=== PATIENT | female | born 1985 | race Caucasian/White ===

== ENCOUNTER 2016-09-13 12:28 | Inpatient (IN) | payer MEDICAID ==
[~2016-09-13] VITALS: Ht 154.9 cm; Wt 78.7 kg
[~2016-09-13 12:28] MED LIST: KEFLEX250 MG PO; NORCO 5/325 MG1 TAB PO; VICODIN-ES1 TAB PO
[2016-09-13 12:37] VITALS: BP 141/71
--- NOTE | 2016-09-13 12:56 | NUR ---
PATIENT PRESENTS TO ED DUE T0 LOWER ABDOMINAL AND RECTAL PAIN . PT STATES I HAVE NO HEMORRHOIDS ,2X VOMITTING, NO DIARRHEA, SKIN IS PINK/WARM/DRY; AAOX4 WITH EVEN AND STEADY GAIT; LUNGS CLEAR BL; HR EVEN AND REGULAR; PT DENIES ANY FEVER, CP, SOB, OR COUGH AT THIS TIME; PATIENT STATES PAIN OF 9/10 AT THIS TIME; PATIENT POSITIONED FOR COMFORT; HOB ELEVATED; BEDRAILS UP X2; BED DOWN. DR. CRAIN AT BEDSIDE.
[2016-09-13] MEDS ORDERED: ACETAMIN/CODEINE 120/12MG-5ML 5 ML UDC PO ONE (13:05)
[2016-09-13] MEDS ORDERED: KETOROLAC 60 MG/2 ML VIAL IM ONE (13:05)
--- NOTE | 2016-09-13 13:15 | NUR ---
LAB AT BEDSIDE
--- NOTE | 2016-09-13 13:20 | NUR ---
XRAY AT BEDSIDE
--- NOTE | 2016-09-13 13:36 | NUR ---
PT RESTING AT THIS TIME, PT AAO, PAIN LEVEL 10/11
--- NOTE | 2016-09-13 13:39 | NUR ---
PT FOR CT VIA WHEELCHAIR, PT AAO
--- NOTE | 2016-09-13 15:01 | NUR ---
PT WENT FOR US VIA WHEELCHAIR, PT DANYO.
--- NOTE | 2016-09-13 15:29 | NUR ---
PT BACK IN BED FROM US, PT AAO, AT BEDSIDE
[2016-09-13] MEDS ORDERED: fentaNYL 0.05 MG/ML VIAL IM ONE (15:40)
--- NOTE | 2016-09-13 15:45 | NUR ---
DR. CRAIN AT BEDSIDE
[2016-09-13] MEDS ORDERED: NACL 0.9% 1,000 ML IV ONE (16:10)
--- NOTE | 2016-09-13 16:28 | NUR ---
PT LYING ON BED ON RIGHT SIDE POSITION, STILL WITH PAIN, 11/11, IVF ONGOING, AT BEDSIDE, US AT BEDSIDE
[2016-09-13] MEDS ORDERED: fentaNYL 0.05 MG/ML VIAL IVP ONE (16:40)
--- NOTE | 2016-09-13 16:59 | NUR ---
PT IN BED NO PAIN NOTED AT THIS TIME, IVF ONGOING WELL TOLERATED, AT BEDSIDE
--- NOTE | 2016-09-13 17:37 | NUR ---
CALL PLACE TO TELE SPOKE TO BOY, BOY WILL CALL ME BACK FOR REPORT
--- NOTE | 2016-09-13 17:47 | NUR ---
REPORT GIVEN TO RICKI
--- NOTE | 2016-09-13 17:54 | NUR ---
TRANSFER TO TELE VIA [place], PT AAO, AT BEDSIDE.
--- NOTE | 2016-09-13 18:00 | NUR ---
ADMITTED 31 YEAR OLD FEMALE FROM ER VIA [facility] WITH A DIAGNOSIS OF INTRACTABLE ABD PAIN ACCOMPANIED BY , PT AMBULATED FROM GURNEY TO BED, PT COMPLAIN OF PAIN WHEN MOVING BUT ABLE TO TOLERATE AT THIS TIME. NO S/S OF RESPIRATORY DISTRESS NOTED, MRSA COLLECTED, VITALS STABLE T 97.6 P 58 R20 BP 98/77 O2 SAT 99% ON ROOM AIR. ORIENTED PT IN THE ROOM AND USE OF CALL LIGHT, SAFETY/FALL PRECAUTION ENFORCED, CALL LIGHT WITHIN REACH, WILL CONTINUE TO MONITOR.
--- NOTE | 2016-09-13 19:15 | NUR ---
ENDORSED PT TO SHARLA LIND FOR CONTINUITY OF CARE AND ADMISSION. PT IS STABLE AT THIS TIME.
--- NOTE | 2016-09-13 19:20 | NUR ---
PT IS CURRENTLY AWAKE ALERT ORIENTED,PT IS ABLE TO MAKE NEEDS KNOWN AND PT IS AMBULATORY.PT ORIENTED TO ROOM AND CALL LIGHT,AND VISITING HOURS PT VERBALIZES UNDERSTANDING.PLAN OF CARE DISCUSSED WITH THE PATIENT AND PT VERBALIZES UNDERSTANDING.PT SKIN INTACT,PT DENIES ABD PAIN AT THIS TIME AND DENIES ANY NAUSEA AND VOMITING.
[2016-09-13] MEDS ORDERED: ONDANSETRON 4 MG/2 ML VIAL IVP PRN (19:40)
[2016-09-13] MEDS ORDERED: DOCUSATE SODIUM 100 MG GELCAP PO PRN (19:40)
[2016-09-13] MEDS ORDERED: MORPHINE SULFATE 2 MG/ML SYR IVP PRN (19:40)
[2016-09-13] MEDS ORDERED: ACETAMINOPHEN 325 MG SUPP RC PRN (19:40)
[2016-09-13] MEDS ORDERED: IBUPROFEN 800 MG TAB PO PRN ×2 (19:40→22:55)
[2016-09-13 20:00] VITALS: BP 103/59
--- NOTE | 2016-09-13 20:00 | NUR ---
Patient's Plan of Care was discussed and reviewed with CLERK ANALYST: LELO MONCADA
--- NOTE | 2016-09-13 22:15 | NUR ---
PT RESTING IN BED QUIETLY NEEDS MET WILL CONTINUE TO MONITOR NEEDS MET.PT WAS GIVEN A SANDWICH AND A JELLO. CALL LIGHT WITHIN REACH WILL CONTINUE TO MONITOR.
[2016-09-13] MEDS ORDERED: ACETAMINOPHEN 325 MG TAB PO PRN (22:55)
[2016-09-14] VITALS: BP 93/49
--- NOTE | 2016-09-14 00:10 | NUR ---
PT IS CURRENTLY RESTING IN BED DENIES PAIN NO N/V NOTED PT IS AWARE THAT SHE IS NPO AFTER MIDNIGHT AND PATIENT VERBALIZES UNDERSTANDING.CALL LIGHT WITHIN REACH
[2016-09-14] MEDS: NACL 0.9% 1,000 ML IV SCH ×4 (00:55→17:44)
--- NOTE | 2016-09-14 03:45 | NUR ---
MD LYNN CALLED AND HE WAS INFORMED THAT PT DOESNT HAVE AN ORDER FOR CODE STATUS.MD ANNE.
[2016-09-14 04:00] VITALS: BP 90/50
--- NOTE | 2016-09-14 04:15 | NUR ---
PT STABLE RESTING IN BED I ASKED HER IF SHE HAS PAIN OR DISCOMFORT PT DENIES PAIN AND DISCOMFORT PT DENIES N/V.IVF INFUSING WELL.
--- NOTE | 2016-09-14 06:50 | NUR ---
PT STABLE DENIES PAIN AND DISCOMFORT IVF INFUSING WELL WILL CONTINUE TO MONITOR CALL LIGHT WITHIN REACH.
--- NOTE | 2016-09-14 07:26 | NUR ---
ASSUMED CONTINUITY OF CARE. NO SIGNS AND SYMPTOMS OF ACUTE DISTRESS NOTED. INITIAL ASSESSMENT DONE. EXPLAINED DIAGNOSIS, PLAN OF CARE, PAIN MANAGEMENT TEACHING, USE OF CALL LIGHT/BED/TV/BATHROOM. VERBALIZED UNDERSTANDING. CALL LIGHT WITHIN REACH.
--- NOTE | 2016-09-14 07:29 | NUR ---
PT STABLE REPORT ENDORSED AT BEDSIDE TO SHARLA ALVARES PT STABLE.
--- NOTE | 2016-09-14 07:41 | NUR ---
PATIENT HAS BEEN SCREENED AND CATEGORIZED MODERATE NUTRITION RISK. PATIENT WILL BE SEEN WITHIN 3-5 DAYS OF ADMISSION. 09/16/16-09/18/16 ROSENDO BARDALES MS, RDN
[2016-09-14 08:00] VITALS: BP 110/66
[2016-09-14] MEDS: PANTOPRAZOLE 40 MG TABEC PO SCH (09:00)
[2016-09-14 12:00] VITALS: BP 120/69
--- NOTE | 2016-09-14 12:00 | NUR ---
VITALS SIGNS STABLE. NO C/O PAIN. WILL MONITOR.
[2016-09-14] MEDS ORDERED: MECLIZINE 25 MG TAB PO PRN (12:30)
--- NOTE | 2016-09-14 15:18 | NUR ---
SEEN WATCHING TV AT THIS TIME. NO DISCOMFORT NOTICED. CALL LIGHT WITHIN REACH.
[2016-09-14 16:00] VITALS: BP 97/50
--- NOTE | 2016-09-14 19:04 | NUR ---
BEDSIDE REPORT GIVEN TO AMAURI MERLOS -ARJUN. IVF INFUSING WELL. IN STABLE CONDITION.
--- NOTE | 2016-09-14 19:05 | NUR ---
RECEIVED PT AWAKE TALKING TO VISITORS AT BEDSIDE, NO SIGNS OF PAIN OR N/V, IVF INFUSING WELL, POC DISCUSSED, CALL LIGHT WITHIN REACH.
--- NOTE | 2016-09-14 21:40 | NUR ---
ROUNDED ON PT, PT TALKING TO FAMILY MEMBER AT BEDSIDE, NO SIGNS OF PAIN OR N/V, ALL NEEDS ATTENDED.
--- NOTE | 2016-09-14 23:30 | NUR ---
PT SLEEPING, EASILY AROUSABLE, VITAL SIGNS STABLE, DENIES ANY PAIN, IVF INFUSING WELL, CONTINUE TO MONITOR CLOSELY.
[2016-09-15] VITALS: BP 93/57
[2016-09-15] MEDS: NACL 0.9% 1,000 ML IV SCH ×2 (01:47→11:37)
--- NOTE | 2016-09-15 02:00 | NUR ---
NEW IVF BAG STARTED, PT IN NO DISTRESS, MONITORED CLOSELY.
--- NOTE | 2016-09-15 04:30 | NUR ---
PT SEEN SLEEPING, NO SIGNS OF PAIN, MONITORED CLOSELY.
--- NOTE | 2016-09-15 07:10 | NUR ---
ASSUMED CONTINUITY OF CARE. NO SIGNS AND SYMPTOMS OF ACUTE DISTRESS NOTICED. KEEP COMFORTABLE ON BED. ENCOURAGED AMBULATION IF TOLERABLE. EXPLAINED DIAGNOSIS, PLAN OF CARE, PAIN MANAGEMENT TEACHING, USE OF CALL LIGHT/BED/TV/BATHROOM. VERBALIZED UNDERSTANDING. CALL LIGHT WITHIN REACH.
--- NOTE | 2016-09-15 07:10 | NUR ---
PT AWAKE, NO SIGNS OF PAIN, REPORT GIVEN TO DAVID MAGDALENO FOR CONTINUITY OF CARE.
[2016-09-15 08:00] VITALS: BP 115/48
[2016-09-15] MEDS: PANTOPRAZOLE 40 MG TABEC PO SCH (08:35)
[2016-09-15] MEDS ORDERED: MOTRIN600 MG PO (09:21)
[2016-09-15] MEDS ORDERED: MAGNESIUM OXIDE 400 MG TAB PO SCH (10:00)
--- NOTE | 2016-09-15 10:00 | NUR ---
EXPLAINED ABOUT DIAGNOSIS, MD D/C ORDER, DISEASE MANAGEMENT, D/C INSTRUCTIONS AND TEACHING, MD FOLLOW-UP, MD D/C PRESCRIPTION LIST EDUCATION, PAIN MANAGEMENT TEACHING. VERBALIZED UNDERSTANDING.
[2016-09-15 11:45] VITALS: BP 106/68
--- NOTE | 2016-09-15 12:05 | NUR ---
D/C HOME VIA WHEELCHAIR ACCOMPANIED BY PT. . AWAKE, ALERT, AND ORIENTED X4. SPEECH CLEAR. NO C/O PAIN. NO SOB, NOTED. IN STABLE CONDITION. INFORMED CHARGE NURSE KELLY THAYER.
== END 2016-09-15 12:05 | disposition home or self-care (01) | DRG 532 ==
LOC: MED 12:42 → MTU 16:58
PROVIDERS: ADMIT Family Medicine; ATTEND Family Medicine
DX: N83.202 Unspecified ovarian cyst, left side (principal); N17.0 Acute kidney failure with tubular necrosis; E43 Unspecified severe protein-calorie malnutrition; R10.2 Pelvic and perineal pain; Z90.49 Acquired absence of other specified parts of digestive tract; Z68.32 Body mass index [BMI] 32.0-32.9, adult

== ENCOUNTER 2017-04-20 23:55 | Emergency (ER) | payer MEDICAID ==
[~2017-04-20] VITALS: Ht 154.9 cm; Wt 81.7 kg
[~2017-04-20 23:55] MED LIST changes: +IBUP-2213 PO; -KEFLEX250 MG PO; -NORCO 5/325 MG1 TAB PO; -VICODIN-ES1 TAB PO
[2017-04-21 00:03] VITALS: BP 134/70
--- NOTE | 2017-04-21 00:53 | NUR ---
AMBULATED TO ER BED 8
--- NOTE | 2017-04-21 00:55 | NUR ---
PATIENT PRESENTS TO ED WITH C/O ABD AND BACK PAIN . PT DENIES N/V/D; SKIN IS PINK/WARM/DRY; AAOX4 WITH EVEN AND STEADY GAIT; LUNGS CLEAR BL; HR EVEN AND REGULAR; PT DENIES ANY FEVER, CP, SOB, OR COUGH AT THIS TIME; PATIENT STATES PAIN OF 8/10 AT THIS TIME; VSS; PATIENT POSITIONED FOR COMFORT; HOB ELEVATED; BEDRAILS UP X2; BED DOWN. ER MD MADE AWARE OF PT STATUS.
[2017-04-21] MEDS ORDERED: ONDANSETRON 4 MG ODT PO ONE (01:05)
[2017-04-21] MEDS ORDERED: KETOROLAC 30 MG/ML VIAL IM ONE (01:05)
[2017-04-21 01:23] LABS: HEMATOCRIT 38.7 % (36-48); HEMOGLOBIN 12.8 g/dL (12.0-16.0); MEAN CORPUSCULAR HEMOGLOBIN 29 pg (27-31); MEAN CORPUSCULAR HGB CONC 33 g/dL (33-37); MEAN CORPUSCULAR VOLUME 87 fL (80-94); PLATELET COUNT (AUTO) 254 K/uL (140-450); RED BLOOD CELL COUNT(AUTO) 4.45 MIL/uL (4.20-5.40); RED CELL DISTRIBUTION WIDTH 12.7 % (11.6-13.7)
[2017-04-21 01:34] LABS: ANION GAP 12.1 (8-16); CARBON DIOXIDE 26.6 mmol/L (21-32); CREATININE 0.7 mg/dL (0.6-1.3); POTASSIUM 3.7 mmol/L (3.5-5.1)
[2017-04-21 01:41] LABS: APPEARANCE,URINE CLOUDY (CLEAR); BILIRUBIN,URINE NEGATIVE (NEGATIVE); BLOOD, URINE 2+ (NEGATIVE); COLOR,URINE YELLOW (YELLOW); LEUKOCYTE ESTERASE ,URINE NEGATIVE (NEGATIVE); NITRITE, URINE POSITIVE (NEGATIVE); UGLUCOSE NEGATIVE (NEGATIVE)
[2017-04-21 01:48] LABS: EOSINOPHILS % (MANUAL) 1 % (0-4); LYMPHOCYTES % (MANUAL) 42 % (20-46); MONOCYTES % (MANUAL) 6 % (5-12)
[2017-04-21 02:12] LABS: RBC,URINE 3-10 (FEW) /HPF (0-5); WBC,URINE 0-5 (RARE) /HPF (0-5)
[2017-04-21 02:25] VITALS: BP 130/72
--- NOTE | 2017-04-21 02:25 | NUR ---
Patient discharged with v/s stable. Written and verbal after care instructions given and explained. Patient alert, oriented and verbalized understanding of instructions. Ambulatory with steady gait. All questions addressed prior to discharge. ID band removed. Patient advised to follow up with PMD. Rx of CIPROFLOXACIN 250MG given. Patient educated on indication of medication including possible reaction and side effects. Opportunity to ask questions provided and answered.
== END 2017-04-21 02:25 | disposition home or self-care (01) ==
LOC: MED 23:55
DX: N39.0 Urinary tract infection, site not specified (principal); I10 Essential (primary) hypertension
CPT/HCPCS: 36415; 80048; 81001; 81025; 83690; 85025; 87086; 96372; 99284; J1885; S0119; 81002; 99283

== ENCOUNTER 2018-04-20 18:27 | Emergency (ER) | payer SELFPAY ==
[~2018-04-20] VITALS: Ht 157.5 cm; Wt 72.6 kg
[2018-04-20 18:33] VITALS: BP 133/83
[2018-04-20] MEDS ORDERED: IBUPROFEN 400 MG TAB PO ONE (18:35)
--- NOTE | 2018-04-20 18:39 | NUR ---
Patient ambulated to bed 7. RN evaluating patient at bedside.
--- NOTE | 2018-04-20 18:45 | NUR ---
C/O RT FLANK PAIN AND FEVER TWO DAYS AGO, THE PAIN COMES AND GOES. RADIATE TO THE WHOLE BODY. SKIN IS PINK/WARM/DRY; AAOX4 WITH EVEN AND STEADY GAIT; LUNGS CLEAR BL; HR EVEN AND REGULAR; PT DENIES ANY FEVER, CP, SOB, OR COUGH AT THIS TIME; PATIENT STATES PAIN OF 7/10 AT THIS TIME; VSS; PATIENT POSITIONED FOR COMFORT; HOB ELEVATED; BEDRAILS UP X2; BED DOWN. ER MD MADE AWARE OF PT STATUS.
--- NOTE | 2018-04-20 19:06 | NUR ---
PT STATED CHEST PAIN RELIEVED. FAMILY AT BEDSIDE. Addendum: 04/20/18 at 1907 by LENARD WRONG ENTRY.
--- NOTE | 2018-04-20 19:15 | NUR ---
REPORT GIVEN TO MIRELA DÍAZ.
[2018-04-20] MEDS ORDERED: LEVOFLOXACIN 500 MG/D5W PREMIX 100 ML IV ONE (19:20)
[2018-04-20] MEDS ORDERED: NACL 0.9% 1,000 ML IV ONE (19:20)
[2018-04-20 19:45] LABS: BASOPHILS % (AUTO) 0.1 % (0.0-2.0); EOSINOPHILS % (AUTO) 0.1 % (0.0-4.0); HEMATOCRIT 38.6 % (36-48); LYMPHOCYTES # (AUTO) 0.8 K/uL (2.5-16.5); MEAN CORPUSCULAR HEMOGLOBIN 30 pg (27-31); MEAN CORPUSCULAR HGB CONC 34 g/dL (33-37); MEAN CORPUSCULAR VOLUME 88.4 fL (80-94); MONOCYTES # (AUTO) 0.4 K/uL (0.8-1.0); NEUTROPHILS # (AUTO) 9.9 K/uL (1.8-7.7); NEUTROPHILS % (AUTO) 88.8 % (42.2-75.2); PLATELET COUNT (AUTO) 232 K/uL (140-450); RED BLOOD CELL COUNT(AUTO) 4.37 MIL/uL (4.20-5.40); WHITE BLOOD COUNT (AUTO) 11.2 K/uL (4.8-10.8)
[2018-04-20 19:51] LABS: BILIRUBIN,URINE NEGATIVE (NEGATIVE); BLOOD, URINE 2+ (NEGATIVE); COLOR,URINE YELLOW (YELLOW); LEUKOCYTE ESTERASE ,URINE NEGATIVE (NEGATIVE); NITRITE, URINE NEGATIVE (NEGATIVE); PH,URINE 5.5 (5.0-9.0); UGLUCOSE NEGATIVE (NEGATIVE)
[2018-04-20 19:52] LABS: APPEARANCE,URINE HAZY (CLEAR)
[2018-04-20 19:56] LABS: ANION GAP 15.7 (8-16); CREATININE 0.9 mg/dL (0.6-1.3); POTASSIUM 3.7 mmol/L (3.5-5.1)
[2018-04-20 20:02] LABS: ALBUMIN 3.5 g/dL (3.4-5.0); TOTAL BILIRUBIN 0.8 mg/dL (0.0-1.0)
[2018-04-20 20:25] LABS: RBC,URINE 3-10 (FEW) /HPF (0-5); WBC,URINE 0-5 (RARE) /HPF (0-5)
--- NOTE | 2018-04-20 21:00 | NUR ---
PT LAYING IN BED, VSS.
[2018-04-20 22:51] VITALS: BP 111/75
--- NOTE | 2018-04-20 22:54 | NUR ---
Patient discharged with v/s stable. Written and verbal after care instructions given and explained. Patient alert, oriented and verbalized understanding of instructions. Ambulatory with steady gait. All questions addressed prior to discharge. ID band removed. Patient advised to follow up with PMD. Rx of CIPROFLOXACIN 500MG given. Patient educated on indication of medication including possible reaction and side effects. Opportunity to ask questions provided and answered.
== END 2018-04-20 22:54 | disposition home or self-care (01) ==
LOC: MED 18:27
DX: A09 Infectious gastroenteritis and colitis, unspecified (principal); N39.0 Urinary tract infection, site not specified; I10 Essential (primary) hypertension; E03.9 Hypothyroidism, unspecified
CPT/HCPCS: 36415; 80053; 81001; 81025; 85025; 96365; 96366; 99285; J1956

== ENCOUNTER 2019-01-13 19:06 | Emergency (ER) | payer SELFPAY ==
[~2019-01-13] VITALS: Ht 157.5 cm; Wt 74.8 kg
--- NOTE | 2019-01-13 19:22 | NUR ---
PT AMBULATED TO BED 2 FOR TRIAGE.
[2019-01-13 19:24] VITALS: BP 119/65
--- NOTE | 2019-01-13 19:24 | NUR ---
33 YO F BIB SELF PRESENTS TO ED C/O DIARRHEA X 2 DAYS ACCOMPANIED BY BILATERAL LOWER ABD CRAMPING. PT ALSO REPORTS DIZZINESS X 1 WEEK WITH A 10/10 POUNDING COX X 3 DAYS. SHE ALSO REPORTS THAT SHE BEGAN TO FEEL NAUSEOUS TODAY AND HAD VOMITED X1 BEFORE ARRIVING TO ED. -- PT APPEARS UNCOMFORTABLE. ALERT, ORIENTED, COOPERARTIVE, RESPONDS TO QUESTIONS APPROPRIATELY. BEHAVIOR AGE APPROPRIATE. -- SKIN PINK, WARM, DRY. BREATHING EVEN, UNLABORED. VSS. PMH-- GALLBLADDER SX, 2016. HX OF FREQUENT RIGHT KIDNEY INFECTION. RX-- ADVIL @1300
[2019-01-13] MEDS ORDERED: NACL 0.9% 1,000 ML IV ONE (20:00)
[2019-01-13] MEDS ORDERED: ONDANSETRON 4 MG/2 ML VIAL IVP ONE (20:00)
[2019-01-13] MEDS ORDERED: KETOROLAC 30 MG/ML VIAL IVP ONE (20:00)
--- NOTE | 2019-01-13 20:12 | NUR ---
LAB AT BEDSIDE.
[2019-01-13 20:19] LABS: BASOPHILS % (AUTO) 0.4 % (0.0-2.0); EOSINOPHILS % (AUTO) 0.8 % (0.0-4.0); HEMATOCRIT 37.9 % (36-48); HEMOGLOBIN 12.6 g/dL (12.0-16.0); LYMPHOCYTES % (AUTO) 32.5 % (20.5-51.1); MEAN CORPUSCULAR HEMOGLOBIN 29 pg (27-31); MEAN CORPUSCULAR HGB CONC 33 g/dL (33-37); MEAN CORPUSCULAR VOLUME 86.3 fL (80-94); MONOCYTES # (AUTO) 0.4 K/uL (0.8-1.0); MONOCYTES % (AUTO) 6.7 % (1.7-9.3); NEUTROPHILS # (AUTO) 3.6 K/uL (1.8-7.7); NEUTROPHILS % (AUTO) 59.6 % (42.2-75.2); PLATELET COUNT (AUTO) 263 K/uL (140-450); RED BLOOD CELL COUNT(AUTO) 4.39 MIL/uL (4.20-5.40); RED CELL DISTRIBUTION WIDTH 13.9 % (11.6-13.7)
[2019-01-13 20:34] LABS: ALBUMIN 3.5 g/dL (3.4-5.0); ANION GAP 15.1 (8-16); CARBON DIOXIDE 24.4 mmol/L (21-32); CREATININE 0.8 mg/dL (0.6-1.3); POTASSIUM 3.5 mmol/L (3.5-5.1); TOTAL BILIRUBIN 0.4 mg/dL (0.0-1.0)
--- NOTE | 2019-01-13 21:40 | NUR ---
Patient appears to be resting comfortably in bed. Vital Signs within normal limits. Respirations even and unlabored. Waiting for IV fluids to complete running. Pain decreased to 6/10. Pt denies nausea. Medications effective.
[2019-01-13 21:51] VITALS: BP 106/41
--- NOTE | 2019-01-13 21:51 | NUR ---
Patient discharged with v/s stable. Written and verbal after care instructions given and explained. Patient alert, oriented and verbalized understanding of instructions. Ambulatory with steady gait. All questions addressed prior to discharge. ID band removed. Patient advised to follow up with PMD. Rx of Zofran and Motrin given. Patient educated on indication of medication including possible reaction and side effects. Opportunity to ask questions provided and answered.
== END 2019-01-13 21:51 | disposition home or self-care (01) ==
LOC: MED 19:06
DX: A08.4 Viral intestinal infection, unspecified (principal); R51 Headache; I10 Essential (primary) hypertension; Z90.49 Acquired absence of other specified parts of digestive tract; Z79.1 Long term (current) use of non-steroidal anti-inflammatories (NSAID)
CPT/HCPCS: 36415; 74022; 80053; 81002; 81025; 83690; 85025; 96361; 96374; 96375; 99285; J1885; J2405; J7030

== ENCOUNTER 2019-06-23 22:41 | Inpatient (IN) | payer MEDICAID ==
[~2019-06-23] VITALS: Ht 157.5 cm; Wt 74.8 kg
[2019-06-23 22:50] VITALS: BP 123/65
--- NOTE | 2019-06-23 22:53 | NUR ---
TO LOBBY A/W BED AMBULATORY
--- NOTE | 2019-06-24 00:18 | NUR ---
PT AMBULATED TO BED 4
[2019-06-24 00:37] LABS: BASOPHILS % (AUTO) 0.1 % (0.0-2.0); EOSINOPHILS % (AUTO) 0.5 % (0.0-4.0); HEMATOCRIT 41.6 % (36-48); HEMOGLOBIN 13.8 g/dL (12.0-16.0); MEAN CORPUSCULAR HEMOGLOBIN 30 pg (27-31); MEAN CORPUSCULAR HGB CONC 33 g/dL (33-37); MEAN CORPUSCULAR VOLUME 89.8 fL (80-94); MONOCYTES # (AUTO) 0.5 K/uL (0.8-1.0); MONOCYTES % (AUTO) 5.9 % (1.7-9.3); NEUTROPHILS # (AUTO) 7.1 K/uL (1.8-7.7); NEUTROPHILS % (AUTO) 81.5 % (42.2-75.2); PLATELET COUNT (AUTO) 244 K/uL (140-450); RED BLOOD CELL COUNT(AUTO) 4.63 MIL/uL (4.20-5.40); RED CELL DISTRIBUTION WIDTH 14.1 % (11.6-13.7); WHITE BLOOD COUNT (AUTO) 8.7 K/uL (4.8-10.8)
--- NOTE | 2019-06-24 00:39 | NUR ---
33 Y/O FEMALE WITH C/O N/V/D, ABD AND FLANK CRAMPING, AND HEADAHCE X2 DAYS. ABD SOFT ROUND AND TENDER TO PALP. BOWEL SOUNDS PRESENT X4 QUAD. 10/10 CRAMPING PAIN AT THIS TIME. PT LAYING IN BED POSITIONED FOR COMFORT. RR EVEN AND UNLABORED. LMP 05/18/19. PT STATES SHE LAST TOOK ADVIL AT 1800 WITH NO PAIN RELIEF. MEDHX: DENIES ALLERGIES: DENIES
--- NOTE | 2019-06-24 00:48 | NUR ---
Dr. Dugan examining patient.
[2019-06-24 00:53] LABS: ANION GAP 13.7 (8-16); CARBON DIOXIDE 26.1 mmol/L (21-32); CREATININE 0.6 mg/dL (0.6-1.3); POTASSIUM 3.8 mmol/L (3.5-5.1)
[2019-06-24 00:59] LABS: ALBUMIN 3.5 g/dL (3.4-5.0); TOTAL BILIRUBIN 0.5 mg/dL (0.0-1.0)
[2019-06-24] MEDS ORDERED: DIAZEPAM 5 MG TAB PO ONE (01:05)
[2019-06-24] MEDS ORDERED: KETOROLAC 30 MG/ML VIAL IM ONE (01:05)
[2019-06-24 01:16] LABS: APPEARANCE,URINE CLEAR (CLEAR); BILIRUBIN,URINE NEGATIVE (NEGATIVE); BLOOD, URINE 1+ (NEGATIVE); COLOR,URINE YELLOW (YELLOW); LEUKOCYTE ESTERASE ,URINE NEGATIVE (NEGATIVE); NITRITE, URINE POSITIVE (NEGATIVE); UGLUCOSE NEGATIVE (NEGATIVE)
[2019-06-24 01:28] LABS: RBC,URINE 0-5 /HPF (0-5); WBC,URINE 0-5 /HPF (0-5)
[2019-06-24] MEDS ORDERED: MORPHINE SULFATE 4 MG/ML SYR IM ONE (02:10)
[2019-06-24] MEDS ORDERED: NACL 0.9% 1,000 ML IV ONE (02:25)
[2019-06-24] MEDS ORDERED: ONDANSETRON 4 MG/2 ML VIAL IVP ONE ×2 (02:30→04:15)
[2019-06-24] MEDS ORDERED: MORPHINE SULFATE 4 MG/ML SYR IVP ONE (02:30)
--- NOTE | 2019-06-24 02:50 | NUR ---
BOYFRIEND AT BEDSIDE.
--- NOTE | 2019-06-24 02:53 | NUR ---
TRANSFER TO CT VIA WHEELCHAIR.
--- NOTE | 2019-06-24 03:02 | NUR ---
PT RETURN FROM CT
--- NOTE | 2019-06-24 03:08 | NUR ---
RETURNED BACK FROM CT VIA WHEELCHAIR.
[2019-06-24] MEDS ORDERED: ONDANSETRON 4 MG/2 ML VIAL IM/IVP PRN (04:15)
[2019-06-24] MEDS ORDERED: DOCUSATE SODIUM 100 MG GELCAP PO PRN (04:15)
[2019-06-24] MEDS ORDERED: ACETAMINOPHEN 325 MG TAB PO PRN (04:15)
[2019-06-24] MEDS ORDERED: HYDROcodone/APAP 7.5/325 MG 1 TAB PO PRN (04:15)
[2019-06-24] MEDS ORDERED: cefTRIAXone 1,000 MG VIAL ONE (04:17)
[2019-06-24 04:43] LABS: BARBITURATE, URINE NEG. ng/ml (NEG <=200); BENZODIAZEPINE, URINE NEG. ng/mL (NEG <=200); CANNABINOID, URINE NEG. ng/mL (NEG <=50); COCAINE, URINE NEG. ng/mL (NEG <=300); OPIATE, URINE NEG. ng/mL (NEG <=2000); PHENCYCLIDINE SCREEN,URINE NEG. ng/mL (NEG <=25)
[2019-06-24] MEDS ORDERED: KETOROLAC 15 MG/ML VIAL IVP PRN (04:45)
[2019-06-24 04:52] LABS: MAGNESIUM 1.9 mg/dL (1.8-2.4); PHOSPHORUS 3.6 mg/dL (2.5-4.9); THYROID STIMULATING HORMONE 0.95 uIU/mL (0.34-3.74)
--- NOTE | 2019-06-24 05:01 | NUR ---
CONTCAT INFO: CARINA RAMIREZ: [phone]
[2019-06-24 05:03] LABS: PROTHROMBIN TIME 9.2 secs (10.8-13.4)
[2019-06-24 05:15] VITALS: BP 100/54
--- NOTE | 2019-06-24 05:23 | NUR ---
Patient will be admitted to care of DR. MARX. Admited to MED/SURG. Will go to room 120A. Belongings list completed. Report to ARJUN PETE.
[2019-06-24] MEDS: NACL 0.9% 1,000 ML IV SCH ×2 (05:50→14:50)
--- NOTE | 2019-06-24 07:10 | NUR ---
RECEIVE REPORT FROM PM NURSE, PT IS RESPIRATION ARE STABLE AND UNLABORED. PT REQUESTING PAIN MEDICATION.
[2019-06-24 08:25] VITALS: BP 108/55
--- NOTE | 2019-06-24 08:31 | NUR ---
PATIENT HAS BEEN SCREENED AND CATEGORIZED MODERATE NUTRITION RISK. PATIENT WILL BE SEEN WITHIN 3-5 DAYS OF ADMISSION. 06/26/19 06/28/[address]
[2019-06-24] MEDS: LACTOBACILLUS RHAMNOSUS GG 1 EACH CAP PO SCH (09:34)
--- NOTE | 2019-06-24 09:50 | NUR ---
PT IS RESTING IN BED. FAMILY AT THE BEDSIDE. IV RUNNING 100ML/HR NS. RESPIRATION ARE EVEN AND UNLABORED.
--- NOTE | 2019-06-24 11:35 | NUR ---
PT IS ASLEEP IN BED. RESPIRATION ARE EVEN AND UNLABORED. IV RUNNING NS AT 100 ML/HR.
--- NOTE | 2019-06-24 14:35 | NUR ---
PT COMPLAINING ABOUT PAIN IN LOWER BACK. PT MEDICATE WITH NORCO. PT IS IN BED, CALL LIGHT WITHIN REACH.
[2019-06-24 16:00] VITALS: BP 126/63
--- NOTE | 2019-06-24 17:30 | NUR ---
PT STANDING BY IV POLE, TALKING ON HER CELL PHONE. PT GOT INTO BED WITHOUT DIFFICULTY. CALL LIGHT WITHIN REACH.
--- NOTE | 2019-06-24 19:26 | NUR ---
GAVE REPORT TO PM NURSE. PT IS STABLE.
--- NOTE | 2019-06-24 19:30 | NUR ---
RECEIVED BEDSIDE REPORT FORM AM SHIFT RN NAVJOT, FOR PT'S CONTINUITY OF CARE. PT IS AAOX4, LYING DOWN IN BED, WITH FAMILY MEMBERS AT BEDSIDE. PT IS ON ROOM AIR, HAS LEFT AC 22G WITH NS AT 100 ML/HR, DENIES ANY PAIN AT THIS TIME. COLLECTED STOOL FOR C.DIFF TEST. EXPLAINED TO PT AND FAMILY MEMBERS THE HYDROMETER FINISHER ROUTINE, PT VERBALIZED UNDERSTANDING. BED IS ON LOW POSITION, SIDE RAILS ARE UP, AND CALL LIGHT IS WITHIN REACH. WILL MONITOR PT THROUGHOUT SHIFT.
--- NOTE | 2019-06-24 20:30 | NUR ---
PT TRANSFERRED FROM 120-A TO 118, FOR C.DIFF PRECAUTION. PT TEACHING GIVEN, PT VERBALIZED UNDERSTANDING. C.DIFF PRECAUTION IN PLACE.
--- NOTE | 2019-06-24 22:00 | NUR ---
MADE ROUNDS. PT'S NEEDS MET, AND PT DENIES ANY PAIN AT THIS TIME. WILL CONTINUE TO MONITOR PT.
--- NOTE | 2019-06-24 23:50 | NUR ---
VS CHECKED AND CHARTED. PT DENIES ANY PAIN OR DISTRESS AT THIS TIME. REMINDED PT REGARDING AM ABX, PT VERBALIZED UNDERSTANDING. WILL CONTINUE TO MONITOR PT.
[2019-06-25] VITALS: BP 103/54
[2019-06-25] MEDS: NACL 0.9% 1,000 ML IV SCH ×2 (01:15→10:12)
--- NOTE | 2019-06-25 01:15 | NUR ---
REPLACED IVF WITH NEW BAG ORDERED. PT LYING DOWN ASLEEP WITH NO SIGNS OF DISTRESS.
--- NOTE | 2019-06-25 03:35 | NUR ---
ADMINISTERED SCHEDULED IV ABX ORDERED. PT LYING DOWN ASLEEP WITH NO SIGNS OF DISTRESS. WILL CONTINUE TO MONITOR PT.
--- NOTE | 2019-06-25 06:15 | NUR ---
RECEIVED CALL FROM LAB FOR ANOTHER STOOL SAMPLE FOR STOOL CULTURE. NOTIFIED PT AND PT VERBALIZED UNDERSTANDING. PT DENIES ANY PAIN AT THIS TIME. WILL ENDORSE TO AM SHIFT RN FOR PT'S CONTINUITY OF CARE.
[2019-06-25 06:16] LABS: MAGNESIUM 1.8 mg/dL (1.8-2.4); PHOSPHORUS 3.6 mg/dL (2.5-4.9)
[2019-06-25 06:19] LABS: CHOL/HDL RATIO 3.6 (1-4.5)
[2019-06-25 06:28] LABS: ANION GAP 12.3 (8-16); CARBON DIOXIDE 23.4 mmol/L (21-32); CREATININE 0.5 mg/dL (0.6-1.3); POTASSIUM 3.7 mmol/L (3.5-5.1)
--- NOTE | 2019-06-25 07:10 | NUR ---
RECEIVED REPORT FROM PM NURSE. PT IS STABLE. RESPIRATION ARE EVEN AND UNLABORED.
[2019-06-25 07:16] LABS: BASOPHILS % (AUTO) 0.5 % (0.0-2.0); EOSINOPHILS # (AUTO) 0.1 K/uL (0-0.4); EOSINOPHILS % (AUTO) 3.2 % (0.0-4.0); HEMATOCRIT 36.2 % (36-48); LYMPHOCYTES # (AUTO) 1.1 K/uL (2.5-16.5); LYMPHOCYTES % (AUTO) 27.7 % (20.5-51.1); MEAN CORPUSCULAR HEMOGLOBIN 30 pg (27-31); MEAN CORPUSCULAR HGB CONC 33 g/dL (33-37); MEAN CORPUSCULAR VOLUME 90.4 fL (80-94); MONOCYTES # (AUTO) 0.4 K/uL (0.8-1.0); MONOCYTES % (AUTO) 10.3 % (1.7-9.3); NEUTROPHILS # (AUTO) 2.2 K/uL (1.8-7.7); NEUTROPHILS % (AUTO) 58.3 % (42.2-75.2); PLATELET COUNT (AUTO) 182 K/uL (140-450); RED CELL DISTRIBUTION WIDTH 13.9 % (11.6-13.7); WHITE BLOOD COUNT (AUTO) 3.8 K/uL (4.8-10.8)
[2019-06-25 08:00] VITALS: BP 141/66
[2019-06-25] MEDS ORDERED: SULF-59 PO (09:19)
[2019-06-25] MEDS ORDERED: LACT1CAP59 PO (09:20)
[2019-06-25] MEDS: LACTOBACILLUS RHAMNOSUS GG 1 EACH CAP PO SCH (09:24)
--- NOTE | 2019-06-25 09:30 | NUR ---
PT IS IN BED RESTING. CALL LIGHT WITHIN REACH. IV RUNNING NS AT 100 ML/HR.
--- NOTE | 2019-06-25 12:00 | NUR ---
PT IN BED ON HER CELLPHONE. PT IS WITHOUT SIGNS OF DISTRESS. RESPIRATION ARE EVEN AND UNLABORED.
--- NOTE | 2019-06-25 14:50 | NUR ---
PT IN BED ON HER CELL PHONE. RESPIRATIONS ARE EVEN AND UNLABORED. IV RUNNING NS AT 100 ML/HR. NO SIGNS OF DISTRESS. NO COMPLAINTS OF PAIN.
[2019-06-25 15:59] VITALS: BP 137/63
[2019-06-25 16:08] VITALS: BP 122/62
[2019-06-25] MEDS ORDERED: INFLUENZA VACCINE QUAD 0.5 ML SYR IMVAC PRN (16:20)
--- NOTE | 2019-06-25 17:00 | NUR ---
Written & verbal discharge instructions provided to pt, verbalized understanding & agree with discharge plans to continue po antibiotics & PCP f/u. Left AC IV 22G removed, site covered with dry gauze & tape. Pt states her is coming to pick her up in 30min & will wait in room.
--- NOTE | 2019-06-25 17:30 | NUR ---
Pt discharged at this time to home. Amb off unit with steady gait, accompanied by . All belongings with pt. Name band removed.
== END 2019-06-25 17:30 | disposition home or self-care (01) | DRG 463 ==
LOC: MED 22:41 → MTU 06-24 04:14
PROVIDERS: ADMIT General Practice; ATTEND General Practice
DX: N12 Tubulo-interstitial nephritis, not specified as acute or chronic (principal); D72.819 Decreased white blood cell count, unspecified; E03.9 Hypothyroidism, unspecified; I10 Essential (primary) hypertension; E66.9 Obesity, unspecified; Z68.30 Body mass index [BMI] 30.0-30.9, adult; Z71.3 Dietary counseling and surveillance; Z90.49 Acquired absence of other specified parts of digestive tract; Z98.891 History of uterine scar from previous surgery; Z79.899 Other long term (current) drug therapy; Z83.3 Family history of diabetes mellitus; Z82.49 Family history of ischemic heart disease and other diseases of the circulatory system
CPT/HCPCS: 36415; 80048; 80053; 80305; 81001; 83036; 83605; 83690; 83735; 84100; 84443; 85025; 85610; 85730; 87040; 87045; 87070; 87081; 87086; 96361; 96372; 96374; 96375; 99285; J0696; J1885; J2270; J2405; J7030; J7060

== ENCOUNTER 2022-02-18 12:47 | Emergency (ER) | payer MEDICAID ==
[~2022-02-18] VITALS: Ht 157.5 cm; Wt 86.2 kg
[~2022-02-18 12:47] MED LIST changes: -IBUP-2213 PO; +LACT1CAP59 PO; +SULF-59 PO
[2022-02-18 12:53] VITALS: BP 124/94
--- NOTE | 2022-02-18 13:20 | NUR ---
36 y/o female, c/o sore throat, chills, sore throat, and throat pain for 3 days. pt states when she returned back from [place] yesterday, she started losing her voice. skin is pink/warm/dry. a&o x4, serbian speaking, with even and steady gait. lungs clear bl, heart rate even and regular. pt states pain is 10/10 at this time. ermd made aware of pt. pmh: denies nka med: unable to recall name, states its a pill form of nyquil from [place]
--- NOTE | 2022-02-18 13:25 | NUR ---
verónica castillo with pt in [facility] for pt evaluation
--- NOTE | 2022-02-18 13:29 | NUR ---
tenzin swabbed at this time
[2022-02-18] MEDS ORDERED: BENZ-300 PO (13:40)
[2022-02-18] MEDS ORDERED: PROM118S5 PO (13:40)
[2022-02-18] MEDS ORDERED: IBUP-2213 PO (13:40)
[2022-02-18 13:51] VITALS: BP 124/94
--- NOTE | 2022-02-18 13:53 | NUR ---
Patient discharged with v/s stable. Written and verbal after care instructions given and explained. Patient alert, oriented and verbalized understanding of instructions. Ambulatory with steady gait. All questions addressed prior to discharge. ID band removed. Patient advised to follow up with PMD. Rx of benzocaine, ibuprofen, promethazine (sent) given. Patient educated on indication of medication including possible reaction and side effects. Opportunity to ask questions provided and answered.
== END 2022-02-18 13:51 | disposition home or self-care (01) ==
LOC: MED 12:47
DX: B34.9 Viral infection, unspecified (principal); Z20.822 Contact with and (suspected) exposure to COVID-19; J04.0 Acute laryngitis; E03.9 Hypothyroidism, unspecified; Z79.899 Other long term (current) drug therapy
CPT/HCPCS: 99283

== ENCOUNTER 2022-06-12 18:05 | Emergency (ER) | payer MEDICAID ==
[~2022-06-12] VITALS: Ht 157.5 cm; Wt 88.0 kg
[~2022-06-12 18:05] MED LIST changes: +BENZ-300 PO; +IBUP-2213 PO; +PROM118S5 PO
[2022-06-12 18:18] VITALS: BP 133/64
[2022-06-12] MEDS ORDERED: ONDANSETRON 4 MG ODT PO ONE (20:10)
--- NOTE | 2022-06-12 20:10 | NUR ---
PATIENT SWABBED FOR COVID AND INFLUENZA
--- NOTE | 2022-06-12 20:19 | NUR ---
PATIRENON MEDICATED AND PLACED BACK IN LOBBY. TOLERATED WELL
[2022-06-12 20:54] LABS: APPEARANCE,URINE SL CLOUDY (CLEAR); BILIRUBIN,URINE NEGATIVE (NEGATIVE); BLOOD, URINE 1+ (NEGATIVE); COLOR,URINE YELLOW (YELLOW); LEUKOCYTE ESTERASE ,URINE NEGATIVE (NEGATIVE); NITRITE, URINE NEGATIVE (NEGATIVE); UGLUCOSE NEGATIVE (NEGATIVE)
[2022-06-12 21:12] LABS: WBC,URINE 0-5 /HPF (0-5)
[2022-06-12 21:13] LABS: OTHER CASTS, URINE None Seen /LPF (None Seen)
--- NOTE | 2022-06-12 21:25 | NUR ---
PT TO BED #5
--- NOTE | 2022-06-12 21:26 | NUR ---
36/F BIB SELF C/C MID BACK PAIN X2 WEEKS. +NAUSEA/VOMITING, DIZZINESS, COX. PATIENT DENIES URINARY SYMPTOMS/SOB/CP. PATIENT AAOX4 AND AMBULATORY WITH STEADY GAIT. PLACED IN BED AND MONITOR. DENIES PMHX , RX, ALLERGIES LMP MAY 2022
[2022-06-12 21:30] VITALS: BP 128/66
[2022-06-12] MEDS ORDERED: cefTRIAXone 1,000 MG in LIDOCAINE MPF 1% 2.1 ML IM ONE (21:30)
[2022-06-12] MEDS ORDERED: cefTRIAXone 1,000 MG VIAL ONE (21:31)
[2022-06-12] MEDS ORDERED: LIDOCAINE MPF 1% 5 ML ONE (21:31)
[2022-06-12] MEDS ORDERED: ONDA-188 PO (21:34)
[2022-06-12] MEDS ORDERED: CEFD300C3 PO (21:34)
--- NOTE | 2022-06-12 21:37 | NUR ---
PATIENT MEDICATED PER ORDERS. TOLERATED WELL.
--- NOTE | 2022-06-12 22:16 | NUR ---
Patient discharged with v/s stable. Written and verbal after care instructions given and explained. Patient alert, oriented and verbalized understanding of instructions. Ambulatory with steady gait. All questions addressed prior to discharge. ID band removed. Patient advised to follow up with PMD. Rx of CEFDINIR, ZOFRAN given. Patient educated on indication of medication including possible reaction and side effects. Opportunity to ask questions provided and answered.
== END 2022-06-12 22:16 | disposition home or self-care (01) ==
LOC: MED 18:05
DX: N39.0 Urinary tract infection, site not specified (principal); Z20.822 Contact with and (suspected) exposure to COVID-19; R42 Dizziness and giddiness; R51.9 Headache, unspecified; M54.50 Low back pain, unspecified; E03.9 Hypothyroidism, unspecified; Z90.49 Acquired absence of other specified parts of digestive tract; Z79.899 Other long term (current) drug therapy
CPT/HCPCS: 81001; 81025; 87426; 87804; 96372; 99283; J0696; J2001; Q0162

== ENCOUNTER 2022-09-30 19:15 | Emergency (ER) | payer MEDICAID ==
[~2022-09-30] VITALS: Ht 157.5 cm; Wt 76.2 kg
[~2022-09-30 19:15] MED LIST changes: +CEFD300C3 PO; +ONDA-188 PO
[2022-09-30 19:24] VITALS: BP 127/93
--- NOTE | 2022-09-30 19:24 | NUR ---
Corrugator Operator Helper no : [phone]
--- NOTE | 2022-09-30 19:29 | NUR ---
Dr. Taylor examining patient.
--- NOTE | 2022-09-30 19:30 | NUR ---
Patient received on bed lying comfortably and awake. Alert and oriented x4. No acute distress. No complaints of pain or discomfort. Respirations even and unlabored. Patient complaining of right facial droop with less sensation compared to left side. No other neurological deficits.
--- NOTE | 2022-09-30 19:42 | NUR ---
Patient taken to bed 6.
[2022-09-30 20:21] LABS: BASOPHILS % (AUTO) 0.4 % (0.0-2.0); EOSINOPHILS # (AUTO) 0.1 K/uL (0-0.4); EOSINOPHILS % (AUTO) 1.4 % (0.0-4.0); HEMATOCRIT 40.1 % (36-48); HEMOGLOBIN 13.3 g/dL (12.0-16.0); LYMPHOCYTES # (AUTO) 2.8 K/uL (2.5-16.5); LYMPHOCYTES % (AUTO) 39.4 % (20.5-51.1); MEAN CORPUSCULAR HEMOGLOBIN 29 pg (27-31); MEAN CORPUSCULAR HGB CONC 33 g/dL (33-37); MEAN CORPUSCULAR VOLUME 86.4 fL (80-94); MONOCYTES # (AUTO) 0.6 K/uL (0.8-1.0); MONOCYTES % (AUTO) 7.8 % (1.7-9.3); NEUTROPHILS # (AUTO) 3.7 K/uL (1.8-7.7); PLATELET COUNT (AUTO) 297 K/uL (140-450); RED BLOOD CELL COUNT(AUTO) 4.64 MIL/uL (4.20-5.40); RED CELL DISTRIBUTION WIDTH 13.6 % (11.6-13.7); WHITE BLOOD COUNT (AUTO) 7.2 K/uL (4.8-10.8)
[2022-09-30 20:45] LABS: ALBUMIN 4.1 g/dL (3.4-5.0); ANION GAP 12.1 (8-16); CARBON DIOXIDE 26.5 mmol/L (21-32); CREATININE 0.7 mg/dL (0.6-1.3); POTASSIUM 3.6 mmol/L (3.5-5.1); TOTAL BILIRUBIN 0.3 mg/dL (0.0-1.0)
[2022-09-30] MEDS ORDERED: VALA1TAB40 PO (22:02)
[2022-09-30] MEDS ORDERED: PRED20TA5 PO (22:02)
[2022-09-30] MEDS ORDERED: DEXT15DR6 OP (22:02)
[2022-09-30 23:19] VITALS: BP 130/79
== END 2022-09-30 23:19 | disposition home or self-care (01) ==
LOC: MED 19:15
DX: G51.0 Bell's palsy (principal); E03.9 Hypothyroidism, unspecified; N18.9 Chronic kidney disease, unspecified; Z79.899 Other long term (current) drug therapy
CPT/HCPCS: 36415; 70450; 70496; 70498; 80053; 81025; 85025; 99285; Q9967

== ENCOUNTER 2022-10-15 21:38 | Emergency (ER) | payer MEDICAID ==
[~2022-10-15] VITALS: Ht 157.5 cm; Wt 88.9 kg
[~2022-10-15 21:38] MED LIST changes: +DEXT15DR6 OP; +PRED20TA5 PO; +VALA1TAB40 PO
[2022-10-15 22:39] VITALS: BP 129/72
--- NOTE | 2022-10-15 22:44 | NUR ---
TO LOBBY FOLLOWING TRIAGE
--- NOTE | 2022-10-16 04:07 | NUR ---
PATIENT LEFT WITHOUT BEING SEEN BY DR. Borden. NO FURTHER CARE PROVIDED FOR PATIENT.
--- NOTE | 2022-10-16 04:07 | NUR ---
Called no show in lobby or outside.
== END 2022-10-16 04:07 | disposition left against medical advice (07) ==
LOC: MED 21:38
DX: R20.0 Anesthesia of skin (principal); R51.9 Headache, unspecified; Z53.21 Procedure and treatment not carried out due to patient leaving prior to being seen by health care provider
CPT/HCPCS: 99281

== ENCOUNTER 2023-11-13 23:21 | Emergency (ER) | payer MEDICAID, OTHER ==
[~2023-11-13] VITALS: Ht 157.5 cm; Wt 90.4 kg
[2023-11-13 23:45] VITALS: BP 126/79; PULSE 69; RESP 16; TEMP 97.8; O2SAT 96
[2023-11-14 00:21] LABS: BASOPHILS % (AUTO) 0.4 % (0.0-2.0); EOSINOPHILS # (AUTO) 0.1 K/uL (0-0.4); EOSINOPHILS % (AUTO) 1.5 % (0.0-4.0); HEMATOCRIT 38.9 % (36-48); HEMOGLOBIN 13.1 g/dL (12.0-16.0); LYMPHOCYTES # (AUTO) 2.4 K/uL (2.5-16.5); LYMPHOCYTES % (AUTO) 29.8 % (20.5-51.1); MEAN CORPUSCULAR HEMOGLOBIN 29 pg (27-31); MEAN CORPUSCULAR HGB CONC 34 g/dL (33-37); MEAN CORPUSCULAR VOLUME 86.5 fL (80-94); MONOCYTES # (AUTO) 0.6 K/uL (0.8-1.0); MONOCYTES % (AUTO) 6.9 % (1.7-9.3); NEUTROPHILS % (AUTO) 61.4 % (42.2-75.2); PLATELET COUNT (AUTO) 304 K/uL (140-450); RED BLOOD CELL COUNT(AUTO) 4.49 MIL/uL (4.20-5.40); WHITE BLOOD COUNT (AUTO) 8.2 K/uL (4.8-10.8)
[2023-11-14 00:29] LABS: APPEARANCE,URINE CLEAR (CLEAR); BILIRUBIN,URINE NEGATIVE (NEGATIVE); BLOOD, URINE 2+ (NEGATIVE); COLOR,URINE YELLOW (YELLOW); LEUKOCYTE ESTERASE ,URINE NEGATIVE (NEGATIVE); NITRITE, URINE POSITIVE (NEGATIVE); PROTEIN,URINE 2+ (NEGATIVE); UGLUCOSE NEGATIVE (NEGATIVE); UROBILINOGEN,URINE 0.2 EU/dL (0.2 - 1)
[2023-11-14 00:33] LABS: BACTERIA,URINE 10-30 (MOD) /HPF (None Seen); MUCUS,URINE 1+ /LPF (None Seen); RBC,URINE TOO NUMEROUS TO COUN /HPF (0-5); SQUAMOUS EPITHELIAL CELL,UR 0-3 (FEW) /LPF (0-3 (FEW)); WBC,URINE 0-5 /HPF (0-5)
[2023-11-14 00:46] LABS: ALBUMIN 3.5 g/dL (3.4-5.0); ANION GAP 12.1 (8-16); CALCIUM 9.1 mg/dL (8.5-10.1); CARBON DIOXIDE 27.7 mmol/L (21-32); CREATININE 0.8 mg/dL (0.6-1.3); POTASSIUM 3.8 mmol/L (3.5-5.1); TOTAL BILIRUBIN 0.2 mg/dL (0.0-1.0); TOTAL PROTEIN, SERUM 7.4 g/dL (6.4-8.2)
[2023-11-14] MEDS ORDERED: CIPR500T4 PO (02:36)
[2023-11-14] MEDS ORDERED: LID5T TP (02:36)
[2023-11-14] MEDS ORDERED: IBUP-2213 PO (02:36)
[2023-11-16] MEDS ORDERED: LEVO750T75 PO (13:31)
== END 2023-11-14 02:50 | disposition home or self-care (01) ==
LOC: MED 23:21
DX: N39.0 Urinary tract infection, site not specified (principal); M54.50 Low back pain, unspecified; E03.9 Hypothyroidism, unspecified; N28.9 Disorder of kidney and ureter, unspecified; Z79.899 Other long term (current) drug therapy
CPT/HCPCS: 36415; 80053; 81001; 81025; 85025; 87086; 87186; 99283